=== PATIENT | female | born 1945 | race Caucasian/White ===

== ENCOUNTER 2017-02-11 11:20 | Emergency (ER) | payer OTHER, MEDICARE ==
[~2017-02-11] VITALS: Ht 157.5 cm; Wt 56.7 kg
[2017-02-11 11:28] VITALS: BP_SYST 144
[2017-02-11] MEDS ORDERED: DIPH-TET-PERTUS Vaccine 0.5 ML VIAL (ADACEL) IM ONE (11:45)
[2017-02-11] MEDS ORDERED: LIDOCAINE 1% 10 MG/ML, 20 ML MDV IJ ONE (11:45)
[2017-02-11] MEDS ORDERED: BACITRACIN 1 GM OINT TP ONE (11:45)
[2017-02-11] MEDS ORDERED: LIDOCAINE 1%, 20 ML MDV 20 ML ONE (11:49)
[2017-02-11 12:20] VITALS: BP_SYST 134
== END 2017-02-11 12:20 | disposition home or self-care (01) ==
LOC: SED 11:20
DX: S61.250A Open bite of right index finger without damage to nail, initial encounter (principal); Z88.0 Allergy status to penicillin; W54.0XXA Bitten by dog, initial encounter; Y93.89 Activity, other specified; Y92.89 Other specified places as the place of occurrence of the external cause; Y99.8 Other external cause status
CPT/HCPCS: 12001; 90471; 90715; 99283; J2001